=== PATIENT | male | born 1995 | race Caucasian/White ===

== ENCOUNTER 2022-02-20 12:52 | Outpatient (CLI) | payer BC, SELFPAY ==
--- NOTE | ~2022-02-20 | XR_ITS ---
XR wrist LT min 3V DATE: 02/20/2022 13:04 INDICATION: Left posterior wrist pain for 2 months TECHNIQUE: 4 views COMPARISON: None FINDINGS: No fracture or dislocation, periosteal reaction or bone destruction, joint space narrowing, erosive change or chondrocalcinosis. IMPRESSION: Negative Reviewed, dictated and finalized at location A. IMPRESSION: Negative
== END 2022-02-20 12:53 | disposition home or self-care (01) ==
PROVIDERS: PCP Family Medicine; Visit Provider Orthopaedic Surgery
DX: M25.532 Pain in left wrist (principal)
CPT/HCPCS: 73110

== ENCOUNTER → 2022-03-13 07:16 | Outpatient (CLI) | payer BC, SELFPAY ==
--- NOTE | ~2022-03-13 | MR_ITS ---
EXAMINATION: MR wrist LT wo con DATE: 03/13/2022 07:59 INDICATION: Left wrist pain TECHNIQUE: Magnetic resonance imaging (MRI) of the left wrist was performed without intravenous contr ast. Sequences performed include axial PD-weighted FSE and PD-weighted FS FSE, coronal PD-weighted FS FSE and T1-weighted SE, and sagittal PD-weighted FS FSE and PD-weighted FSE. COMPARISON: None FINDINGS: Intrinsic ligaments: The scapholunate and lunotriquetral ligaments are normal. Triangular fibrocartilage complex (TFCC): The triangular fibrocartilage including its foveal and styloid attachments as well as the dorsal and volar radioulnar ligaments are normal. The ulnar collateral ligament, ulnotriquetral ligament and men iscal homologue are normal. The extensor carpi ulnaris tendon sheath is normal. Extensor wrist: Mild tendinopathy and longitudinal split tearing of the extensor carpi ulnaris tendon beginning at th e level of the ulnar styloid process and extending approximately 2 cm distally. Remainder of the exte nsor tendons of the wrist are normal. No tenosynovitis. Flexor wrist: The flexor tendons of the wrist are normal. No abnormality in the carpal tunnel with normal median n erve. Guyon's canal: Guyon's canal including the ulnar nerve and artery are normal. Bones/other: Normal marrow signal. No fracture, erosions, avascular necrosis or pathologic marrow replacing proces s. There is nonuniform partial-thickness cartilage loss consistent with mild polyarticular osteoarthr itis at the distal radioulnar joint, radioscaphoid articulation of the wrist joint, scaphocapitate ar ticulation at the midcarpal joint, triscaphe joint and first carpal metacarpal joint IMPRESSION: 1. Mild tendinopathy and longitudinal split tearing of the extensor carpi ulnaris tendon which underl ies the region of the marker indicating the site of pain. 2. 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 Reviewed, dictated and finalized at location B. [employer]ACHINE OPERATOR IMPRESSION: 1. Mild tendinopathy and longitudinal split tearing of the extensor carpi ulnar is tendon which underlies the region of the marker indicating the site of pain. 2. 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
== END ==
PROVIDERS: PCP Family Medicine; Visit Provider Orthopaedic Surgery
DX: M19.032 Primary osteoarthritis, left wrist (principal)
CPT/HCPCS: 73221

== ENCOUNTER 2022-04-28 09:42 | Emergency (ER) | payer BC, SELFPAY ==
[2022-04-28 09:46] VITALS: BP 123/71; PULSE 106; RESP 18; TEMP 38.3; O2SAT 98
--- NOTE | 2022-04-28 09:56 | ED.URI ---
HPI - URI/Sore Throat General Chief Complaint: Upper Respiratory Infection Stated Complaint: Body Aches/Sore Throat Time Seen by Provider: 04/28/22 09:55 Source: patient Mode of arrival: ambulatory Limitations: no limitations History of Present Illness HPI Narrative: Asad is a 27-year-old male patient presenting to the clinic today with complaints of sore throat, body aches, and fever x1 day. He reports his highest fever was 101. MD elicited complaint: fever and sore throat Related Data Allergies Allergy/AdvReac Type Severity Reaction Status Date / Time No Known Allergies Allergy Verified 04/28/22 09:57 Review of Systems Review of Systems: Pertinent positives per HPI. Patient denies any fever, chills, rash, headache, visual changes, dizziness, cough, shortness of breath, chest pain, palpitations, nausea, vomiting, diarrhea, constipation, abdominal pain, or any urinary issues. PMFSH Past Medical History Medical History Left wrist tendonitis TFCC (triangular fibrocartilage complex) tear Surgical History Surgical History No pertinent past surgical history Family History Family History Other No family history of disorders Social History Social History Smoking status: Never smoker Alcohol intake: current Substance use: unknown Gender identity (if verbalized by the patient): Male Comments At the time of my signature, I reviewed and agree with the nursing past medical, surgical, social, and family history. There is no relevant family history pertinent to the patient complaint. Exam Narrative: General: Well-developed, well nourished, in no apparent distress Head: Normocephalic, atraumatic Eyes: Pupils equally round and reactive to light bilaterally, EOM intact, sclera and conjunctive clear, no discharge, lids normal Ears: TMs intact and dull, ear canals clear, no drainage, grossly hearing normal. Nose: Nares patent, clear discharge, no inflammation, no sinus tenderness. Mouth: Oral pharynx without lesions or masses, good dentition, MMM. Oropharynx red Neck: Supple, trachea midline, no enlargement of anterior or posterior cervical nodes, no thyroid masses or goiter palpable. Cardio: Regular rate and rhythm, s1 and s2 normal, no murmur appreciated. Resp: Clear to auscultation bilaterally, no rhonchi, rales, wheezing or rubs Course Course Emergency Course: Portions of this record may have been created with voice recognition software. Level of Care: Express Care Visit Vital Signs Vital signs: Vital Signs Temperature 38.3 C H 04/28/22 09:46 Pulse Rate 106 H 04/28/22 09:46 Respiratory Rate 18 04/28/22 09:46 Blood Pressure 123/71 04/28/22 09:46 Pulse Oximetry 98 04/28/22 09:46 Oxygen Delivery Room Air 04/28/22 09:46 Temperature 38.3 C H 04/28/22 09:46 Pulse Rate 106 H 04/28/22 09:46 Respiratory Rate 18 04/28/22 09:46 Blood Pressure 123/71 04/28/22 09:46 Pulse Oximetry 98 04/28/22 09:46 Oxygen Delivery Room Air 04/28/22 09:46 Vital signs reviewed MDM - URI/Sore Throat MDM Narrative Medical decision making narrative: At the time of visit patient is resting comfortably on the exam table. Strep screen was obtained and was positive in the clinic today. Prescription for amoxicillin was sent to the pharmacy and supportive measures were discussed with the patient he voiced understanding discharge instructions and agrees to treatment plan Differential Diagnosis Differential diagnosis: Likely sinusitis, viral infection, influenza and pharyngitis Lab Data Labs: Strep Screen Positive Group A Strep *(Reference Range: Negative)* Discharge Plan Discharg
== END 2022-04-28 10:10 | disposition home or self-care (01) ==
PROVIDERS: Emergency Provider Nurse Practitioner Family; PCP Family Medicine
DX: J02.0 Streptococcal pharyngitis (principal)
CPT/HCPCS: 87880; 99213; G0463